=== PATIENT | male | born 1960 | race Caucasian/White ===

== ENCOUNTER 2018-08-16 10:40 | Day surgery (SDC) | payer OTHER ==
[2018-08-16] MEDS ORDERED: ONDANSETRON 4 MG/2 ML VIAL IVP ONE (11:09)
[2018-08-16] MEDS ORDERED: NS 1,000 ML IV ONE (11:09)
[2018-08-16] MEDS ORDERED: KETOROLAC 15 MG/1 ML SDV IVP ONE (11:09)
--- NOTE | 2018-08-16 11:12 | EDPHY ---
H & P Stated Complaint: RLQ pain Time Seen by Provider: 08/16/18 10:56 HPI/ROS: CHIEF COMPLAINT: Abdominal pain HISTORY OF PRESENT ILLNESS: 57-year-old male complaining of 3 days of right lower quadrant abdominal pain with associated vomiting x1 last night. Patient thought his initial symptoms more than likely secondary to "bad food No radiation pain. No testicle pain. No fever no chills. PRIMARY CARE PROVIDER: REVIEW OF SYSTEMS: 10 systems reviewed and negative with the exception of the elements mentioned in the history of present illness PAST MEDICAL & SURGICAL HISTORY: no history of abdominal surgeries SOCIAL HISTORY: Nonsmoker . PHYSICAL EXAM (Prior to examination, patient consented to physical exam, hands were washed and my usual and customary physical exam procedures followed) 1) GENERAL: Well-developed, well-nourished, alert and oriented. Appears to be in no acute distress. 2) HEAD: Normocephalic, atraumatic 3) HEENT: Pupils equal, round, reactive to light bilaterally. Sclera anicteric. 4) NECK: Full range of motion, no meningeal signs. 5) LUNGS: Clear auscultation bilaterally, no wheezes, no rhonchi, no retractions. 6) HEART: Regular rate and rhythm, no murmur, no heave, no gallop. 7) ABDOMEN: Guarding abdomen, tender to palpation right lower quadrant., 8) MUSCULOSKELETAL: Moving all extremities, no focal areas of tenderness, no obvious trauma. No peripheral edema or discoloration. 9) BACK: No CVA tenderness, no midline vertebral tenderness, no fluctuance, no step-off, no obvious trauma, no visual or palpable abnormality. 10) SKIN: No rash, no petechiae. 11) : Circumcised, bilateral testicles nontender non high-riding. Bilateral cremasteric reflex present and brisk. No inguinal mass. DIFFERENTIAL DIAGNOSIS: My differential diagnosis includes, but is not limited to, acute appendicitis, acute cholecystitis, bowel obstruction, acute pancreatitis, testicular torsion, gastritis and urinary tract infection. The patient understands that this diagnosis is provisional and can never be 100% accurate. This is a partial list of diagnoses considered. These considerations are based on history, physical exam, past history and reassessment. - Personal History Current Tetanus/Diphtheria Vaccine: Yes Current Tetanus Diphtheria and Acellular Pertussis (TDAP): Yes - Medical/Surgical History Hx Asthma: No Hx Chronic Respiratory Disease: No Hx Diabetes: No Hx Cardiac Disease: No Hx Renal Disease: No Hx Cirrhosis: No Hx Alcoholism: No Hx HIV/AIDS: No Hx Splenectomy or Spleen Trauma: No Other PMH: Rt wrist surgery, Rt elbow surgery, Lt thumb surgery - Social History Smoking Status: Never smoked Constitutional: Initial Vital Signs Temperature (C) 37.2 C 08/16/18 10:45 Heart Rate 87 08/16/18 10:45 Respiratory Rate 16 08/16/18 10:45 Blood Pressure 128/101 H 08/16/18 10:45 O2 Sat (%) 98 08/16/18 10:45 O2 Delivery Mode Room Air Allergies/Adverse Reactions: latex Allergy (Verified 02/14/16 15:11) Penicillins Allergy (Verified 08/16/18 12:00) Anaphylaxis Home Medications: Medication Instructions Recorded Acetaminophen [Tylenol 325mg (*)] 325 mg PO Q6 PRN 08/16/18 Fluticasone Nasal [Flonase Nasal 1 sprays NASAL BID 08/16/18 [place] (RX)] Ibuprofen [Motrin (*)] 200 mg PO TID PRN 08/16/18 Naphazoline/Zinc Sulf/Glycerin 1 drop OP DAILY PRN 08/16/18 [Clear Eyes Itchy Eye Rlf Drops] metFORMIN HCL [Glucophage 500 mg 500 mg PO BIDMEAL 08/16/18 (*)] Medical Decision Making - Diagnostics Imaging Results: Imaging Impressions Abdomen CT 08/16/18 11:14 Impression: Acute appendicitis. Findings and recommendations discussed with Kathy Stone at 1145 hour, 08/16. Images reviewed myself ED Course/Re-evaluation: 11:00 a.m.: Care of patient under supervision of secondary supervising physician Dr Park with whom I discussed case. I recommended CT imaging given location of his pain, concerns for possible appendicitis. 11:35 a.m.: CT interpreted by staff radiologist positive for acute appendicitis without perforation.. I discussed the imaging results with the patient. 11:40 a.m.: Consultation with Dr. Schneider surgery who will plan taking the patient operating room. Patient will be given ceftriaxone and Flagyl. He is penicillin allergic. Patient remains NPO since last evening. - Data Points Laboratory Results: Laboratory Results 08/16/18 11:00 08/16/18 11:00 08/16/18 08/16/18 08/16/18 11:06 11:00 11:00 WBC 10.14 10^3/uL H 10^3/uL (3.80-9.50) RBC 5.18 10^6/uL 10^6/uL (4.40-6.38) Hgb 16.4 g/dL g/dL (13.7-17.5) POC Hgb 16.7 gm/dL gm/dL (13.7-17.5) Hct 46.3 % % (40.0-51.0) POC Hct 49 % % (40-51) MCV 89.4 fL fL (81.5-99.8) MCH 31.7 pg pg (27.9-34.1) MCHC 35.4 g/dL g/dL (32.4-36.7) RDW 12.5 % % (11.5-15.2) Plt Count 175 10^3/uL 10^3/uL (150-400) MPV 9.3 fL fL (8.7-11.7) Neut % (Auto) 81.4 % H % (39.3-74.2) Lymph % (Auto) 10.2 % L % (15.0-45.0) [place] % (Auto) 7.6 % % (4.5-13.0) Eos % (Auto) 0.2 % L % (0.6-7.6) Baso % (Auto) 0.2 % L % (0.3-1.7) Nucleat RBC Rel Count 0.0 % % (0.0-0.2) Absolute Neuts (auto) 8.26 10^3/uL H 10^3/uL (1.70-6.50) Absolute Lymphs (auto) 1.03 10^3/uL 10^3/uL (1.00-3.00) Absolute Monos (auto) 0.77 10^3/uL 10^3/uL (0.30-0.80) Absolute Eos (auto) 0.02 10^3/uL L 10^3/uL (0.03-0.40) Absolute Basos (auto) 0.02 10^3/uL 10^3/uL (0.02-0.10) Absolute Nucleated RBC 0.00 10^3/uL 10^3/uL (0-0.01) Immature Gran % 0.4 % % (0.0-1.1) Immature Gran # 0.04 10^3/uL 10^3/uL (0.00-0.10) POC Sodium 139 mEq/L mEq/L (135-145) Sodium 136 mEq/L mEq/L (135-145) POC Potassium 4.0 mEq/L mEq/L (3.3-5.0) Potassium 4.4 mEq/L mEq/L (3.5-5.2) POC Chloride 101 mEq/L mEq/L (97-110) Chloride 103 mEq/L mEq/L (97-110) Carbon Dioxide 24 mEq/l mEq/l (22-31) POC Total CO2 24 mEq/L mEq/L (22-31) Anion Gap 9 mEq/L mEq/L (6-14) POC BUN 12 mg/dL mg/dL (7-23) BUN 14 mg/dL mg/dL (7-23) Creatinine 1.0 mg/dL mg/dL (0.7-1.3) POC Creatinine 1.1 mg/dL mg/dL (0.7-1.3) Estimated GFR > 60 Glucose 133 mg/dL H mg/dL (70-100) POC Glucose 139 mg/dL H mg/dL (70-100) Calcium 9.7 mg/dL mg/dL (8.5-10.4) Total Bilirubin 1.3 mg/dL mg/dL (0.1-1.4) Conjugated Bilirubin 0.3 mg/dL mg/dL (0.0-0.5) Unconjugated Bilirubin 1.0 mg/dL mg/dL (0.0-1.1) AST 26 IU/L IU/L (17-59) ALT 35 IU/L IU/L (21-72) Alkaline Phosphatase 70 IU/L IU/L (38-126) Total Protein 7.7 g/dL g/dL (6.3-8.2) Albumin 4.6 g/dL g/dL (3.5-5.0) Lipase 33 IU/L IU/L (23-300) Urine Color Urine Appearance Urine pH Ur Specific [place] Urine Protein Urine Ketones Urine Blood Urine Nitrate Urine Bilirubin Urine Urobilinogen Ur Leukocyte Esterase Urine Glucose 08/16/18 10:55 WBC RBC Hgb POC Hgb Hct POC Hct MCV MCH MCHC RDW Plt Count MPV Neut % (Auto) Lymph % (Auto) [place] % (Auto) Eos % (Auto) Baso % (Auto) Nucleat RBC Rel Count Absolute Neuts (auto) Absolute Lymphs (auto) Absolute Monos (auto) Absolute Eos (auto) Absolute Basos (auto) Absolute Nucleated RBC Immature Gran % Immature Gran # POC Sodium Sodium POC Potassium Potassium POC Chloride Chloride Carbon Dioxide POC Total CO2 Anion Gap POC BUN BUN Creatinine POC Creatinine Estimated GFR Glucose POC Glucose Calcium Total Bilirubin Conjugated Bilirubin Unconjugated Bilirubin AST ALT Alkaline Phosphatase Total Protein Albumin Lipase Urine Color YELLOW Urine Appearance CLEAR Urine pH 7.0 (5.0-7.5) Ur Specific [place] 1.024 (1.002-1.030) Urine Protein NEGATIVE (NEGATIVE) Urine Ketones NEGATIVE (NEGATIVE) Urine Blood NEGATIVE (NEGATIVE) Urine Nitrate NEGATIVE (NEGATIVE) Urine Bilirubin NEGATIVE (NEGATIVE) Urine Urobilinogen NEGATIVE EU EU (0.2-1.0) Ur Leukocyte Esterase NEGATIVE (NEGATIVE) Urine Glucose NEGATIVE (NEGATIVE) Medications Given: Discontinued Medications Hydromorphone HCl (Dilaudid) 1 mg IVP EDNOW ONE Stop: 08/16/18 12:11 Last Admin: 08/16/18 12:11 Dose: 1 mg Sodium Chloride (Ns) 1,000 mls @ 0 mls/hr IV ONCE ONE PRN Reason: Wide Open Stop: 08/16/18 11:10 Last Admin: 08/16/18 11:21 Dose: 1,000 mls Ceftriaxone Sodium/Dextrose (Rocephin 1 Gm (Premix)) 50 mls @ 100 mls/hr IV EDNOW ONE PRN Reason: Protocol Stop: 08/16/18 12:18 Last Admin: 08/16/18 12:04 Dose: 50 mls Metronidazole/Sodium Chloride (Flagyl 500 Mg (Premix)) 100 mls @ 100 mls/hr IV EDNOW ONE PRN Reason: Protocol Stop: 08/16/18 12:48 Last Admin: 08/16/18 12:05 Dose: 100 mls Ketorolac Tromethamine (Toradol) 15 mg IVP EDNOW ONE Stop: 08/16/18 11:10 Last Admin: 08/16/18 11:21 Dose: 15 mg Ondansetron HCl (Zofran) 4 mg IVP EDNOW ONE Stop: 08/16/18 11:10 Last Admin: 08/16/18 11:21 Dose: 4 mg Point of Care Test Results: Chemistry 08/16/18 11:06 POC Sodium 139 mEq/L mEq/L (135-145) POC Potassium 4.0 mEq/L mEq/L (3.3-5.0) POC Chloride 101 mEq/L mEq/L (97-110) POC Total CO2 24 mEq/L mEq/L (22-31) POC BUN 12 mg/dL mg/dL (7-23) POC Creatinine 1.1 mg/dL mg/dL (0.7-1.3) POC Glucose 139 mg/dL H mg/dL (70-100) ISTAT H&H 08/16/18 11:06 POC Hgb 16.7 gm/dL gm/dL (13.7-17.5) POC Hct 49 % % (40-51) Departure - Departure Disposition: [facility] [place]patient Acute Clinical Impression: Acute appendicitis Qualifiers: Acute appendicitis type: with localized peritonitis Appendicitis gangrene presence: without gangrene Appendicitis perforation presence: without perforation Appendicitis abscess presence: without abscess Qualified Code(s): K35.30 - Acute appendicitis with localized peritonitis, without perforation or gangrene Condition: Fair
[2018-08-16 11:16] LABS: PLATELET COUNT 175 10^3/uL (150-400)
[2018-08-16] MEDS ORDERED: IOPAMIDOL (ISOVUE-300) 100 ML BTL ONE (11:18)
[2018-08-16] MEDS ORDERED: HYDROmorphONE/DILAUDID 1 MG/ML INJ ONE (12:10)
[2018-08-16] MEDS ORDERED: HYDROmorphONE/DILAUDID 1 MG/ML INJ IVP ONE (12:10)
[2018-08-16] MEDS ORDERED: LIDOCAINE 1% 300 MG/30 ML SDV ONE (14:11)
[2018-08-16] MEDS ORDERED: BUPIVACAINE 0.5% 30 ML SDV ONE (14:11)
[2018-08-16] MEDS ORDERED: LR 1,000 ML IV ONE (14:19)
[2018-08-16] MEDS ORDERED: fentaNYL 100 MCG/2 ML INJ ONE (15:02)
[2018-08-16] MEDS ORDERED: PROPOFOL/EMULSION 500 MG/50 ML BOTTLE IV ONE (15:02)
[2018-08-16] MEDS ORDERED: MIDAZOLAM 2 MG/2 ML VIAL ONE (15:02)
[2018-08-16] MEDS ORDERED: METOCLOPRAMIDE 10 MG/2 ML VIAL ONE (15:49)
[2018-08-16] MEDS ORDERED: LIDOCAINE 2% 5 ML SDV ONE (15:49)
[2018-08-16] MEDS ORDERED: ROCURONIUM 50 MG/5 ML VIAL ONE (15:49)
[2018-08-16] MEDS ORDERED: ONDANSETRON 4 MG/2 ML VIAL ONE (15:49)
[2018-08-16] MEDS ORDERED: KETOROLAC 30 MG/1 ML SDV ONE (15:49)
[2018-08-16] MEDS ORDERED: SUGAMMADEX SODIUM 200 MG/2 ML VIAL IVP ONE (15:49)
[2018-08-16] MEDS ORDERED: DEXAMETHASONE 4 MG/ML VIAL IVP PRN (15:50)
[2018-08-16] MEDS ORDERED: ACETAMINOPHEN 500 MG TAB PO PRN (15:50)
[2018-08-16] MEDS ORDERED: fentaNYL 100 MCG/2 ML INJ IVP PRN (15:50)
[2018-08-16] MEDS ORDERED: ONDANSETRON 4 MG/2 ML VIAL IVP PRN (15:50)
[2018-08-16] MEDS ORDERED: MEPERIDINE 25 MG/0.5 ML AMP IVP PRN (15:50)
[2018-08-16] MEDS ORDERED: LR 500 ML IV PRN (15:50)
[2018-08-16] MEDS ORDERED: oxyCODONE IR 5 MG TAB PO PRN (15:50)
[2018-08-16] MEDS ORDERED: HYDROCODONE/APAP 5/325 TAB PO PRN (15:50)
[2018-08-16] MEDS ORDERED: NALOXONE HCL 0.4 MG/ML INJ IVP PRN (15:50)
[2018-08-16] MEDS ORDERED: ALBUTEROL 3 ML DEYVIAL IH PRN (15:50)
--- NOTE | 2018-08-16 15:50 | PDANEPAE ---
ANE Past Medical History - Pulmonary History Hx Oxygen in Use at Home: No Hx Sleep Apnea: No - Endocrine History Hx Diabetes: No ANE Review of Systems Review of Systems: ANE Patient History - Allergies Allergies/Adverse Reactions: latex Allergy (Verified 02/14/16 15:11) Penicillins Allergy (Verified 08/16/18 12:00) Anaphylaxis - Home Medications Home Medications: Acetaminophen [Tylenol 325mg (*)] 325 mg PO Q6 PRN 08/16/18 [Last Taken 1 Week Ago ~08/09/18] Fluticasone Nasal [Flonase Nasal [place] (RX)] 1 sprays NASAL BID 08/16/18 [Last Taken 08/15/18] Ibuprofen [Motrin (*)] 200 mg PO TID PRN 08/16/18 [Last Taken 08/15/18 21:00] Naphazoline/Zinc Sulf/Glycerin [Clear Eyes Itchy Eye Rlf Drops] 1 drop OP DAILY PRN 08/16/18 [Last Taken Unknown] metFORMIN HCL [Glucophage 500 mg (*)] 500 mg PO BIDMEAL 08/16/18 [Last Taken 1 Month Ago ~07/19/18] - NPO status NPO Since - Liquids (Date): 08/16/18 NPO Since - Liquids (Time): 07:30 NPO Since - Solids (Date): 08/15/18 NPO Since - Solids (Time): 17:00 - Smoking Hx Smoking Status: Never smoked ANE Labs/Vital Signs - Labs Result Diagrams: 08/16/18 11:00 08/16/18 11:00 - Vital Signs Blood Pressure: 136/83 Heart Rate: 78 Respiratory Rate: 18 O2 Sat (%): 95 Height: 172.72 cm Weight: 81.647 kg ANE Physical Exam - Airway Neck exam: FROM Mallampati Score: Class 3 Mouth exam: normal dental/mouth exam - Pulmonary Pulmonary: no respiratory distress, no rales or rhonchi, clear to auscultation - Cardiovascular Cardiovascular: regular rate and rhythym, no murmur, rub, or gallop - ASA Status ASA Status: II, E ANE Anesthesia Plan Anesthesia Plan: general endotracheal anesthesia
--- NOTE | 2018-08-16 15:55 | POSTOPPROG ---
Post Op Note Date of Operation: 08/16/18 Surgeon: Jay Schneider Assistant Professor Of Psychology: none Anesthesia: GET(General Endotracheal) Pre-op Diagnosis: acute appendicitis Post-op Diagnosis: same Procedure: lap appy Findings: acute appediceal inflammation Inf/Abcess present in the surg proc area at time of surgery?: Yes Depth: Organ Space Specimen(s): appendix
--- NOTE | 2018-08-16 16:10 | POSTANESTH ---
Post Anesthetic Evaluation Cardiovascular Status: Normal, Stable, Similar to Pre-Op Cond Respiratory Status: Normal, Stable, Similar to Pre-op Cond. Level of Consciousness/Mental Status: Mildly Sleepy, Arousable Pain Control: Adequate, Prn Tx Ordered Nausea/Vomiting Control: Adequate, Prn Tx Ordered Complications Possibly Related to Anesthesia: None Noted
[2018-08-16 17:38] VITALS: BP 131/82
== END 2018-08-16 17:38 | disposition home or self-care (01) ==
LOC: FSGY 11:48 → UNDOADMOB 11:48 → FSGY 17:38 → UNDODISOB 17:38
PROVIDERS: ATTEND Surgery
PROC: 0DTJ4ZZ Resection of Appendix, Percutaneous Endoscopic Approach (ICD-10-PCS; principal; 2018-08-16 15:00)
DX: K35.80 Unspecified acute appendicitis (principal); Z88.0 Allergy status to penicillin
CPT/HCPCS: 82435-PO; 82565-PO; 82947-PO; 84132-PO; 84295-PO; 84520-PO; 85014-ER; 96365; J0696; J1170; J1885; J2250; J2405; J2704; J2765; J3010; Q9967